=== PATIENT | male | born 1975 | race Caucasian/White ===

== ENCOUNTER 2020-09-20 13:56 | Emergency (ER) | payer OTHER ==
[2020-09-20 16:37] LABS: HEMOGLOBIN 15.9 gm/dl (14.0-17.5); RED BLOOD COUNT 5.27 M/UL (4.20-5.50); WHITE BLOOD COUNT 7.8 K/UL (4.5-11.0)
[2020-09-20 17:12] LABS: BUN/CREATININE RATIO 15 (0-10)
== END 2020-09-20 20:26 | disposition home or self-care (01) ==
LOC: ER1 13:56
PROVIDERS: Emergency Medicine
DX: R07.89 Other chest pain (principal); R51.9 Headache, unspecified; R42 Dizziness and giddiness
CPT/HCPCS: 71045; 80053; 82550; 82553; 83690; 83735; 83874; 84100; 84484; 85025; 85379; 85610; 85730; 93005; 99285

== ENCOUNTER 2020-10-01 14:23 | Emergency (ER) | payer OTHER ==
[2020-10-01 16:13] LABS: HEMOGLOBIN 15.3 gm/dl (14.0-17.5); RED BLOOD COUNT 5.07 M/UL (4.20-5.50); WHITE BLOOD COUNT 7.3 K/UL (4.5-11.0)
[2020-10-01 16:39] LABS: BUN/CREATININE RATIO 14 (0-10)
[2020-10-01] MEDS ORDERED: CHLORTHALIDONE PO (17:53)
== END 2020-10-01 18:21 | disposition home or self-care (01) ==
LOC: ER1 14:23
PROVIDERS: Emergency Medicine
DX: I10 Essential (primary) hypertension (principal); R07.2 Precordial pain
CPT/HCPCS: 71045; 80053; 82550; 82553; 83874; 84484; 85025; 93005; 99285

== ENCOUNTER → 2020-10-31 | Outpatient (CLI) | payer OTHER ==
[~2020-10-31] MED LIST: CHLORTHALIDONE PO
== END ==
LOC: HEART 5 11:00
DX: R00.2 Palpitations (principal); I51.7 Cardiomegaly
CPT/HCPCS: 93306

== ENCOUNTER 2021-08-05 17:58 | Emergency (ER) | payer OTHER ==
[2021-08-05] MEDS ORDERED: BACTRIM DS TAB1 EACH PO (18:51)
[2021-08-05] MEDS ORDERED: BACTROBAN OINT22 GM EXT (18:51)
[2021-08-05] MEDS ORDERED: CEPHALEXIN500 M1 PO (18:51)
== END 2021-08-05 19:00 | disposition home or self-care (01) ==
LOC: ER1 17:58
DX: L03.012 Cellulitis of left finger (principal)
CPT/HCPCS: 99283